=== PATIENT | female | born 1975 ===

== ENCOUNTER → 2025-05-07 | Outpatient (REF) | LOC: M EMP 09:20 | PROVIDERS: ATTEND Family Medicine | DX: Z02.89 Encounter for other administrative examinations (principal) ==

== ENCOUNTER → 2025-05-28 | Outpatient (REF) | payer OTHER | LOC: M LAB REF 19:13 | PROVIDERS: ATTEND Physician Assistant | DX: B34.9 Viral infection, unspecified (principal) ==